=== PATIENT | male | born 1975 | race Caucasian/White ===

== ENCOUNTER 2018-02-24 08:07 | Inpatient (IN) | payer BC, OTHER ==
[~2018-02-24] VITALS: Ht 167.6 cm; Wt 90.8 kg
[~2018-02-24 08:07] MED LIST: VICODIN 5-5001 EACH
[2018-02-24] MEDS ORDERED: ONDANSETRON HCL 4 MG ORAL DISINTEGRATING TAB PO PRN (10:15)
[2018-02-24] MEDS ORDERED: HYDROMORPHONE 1MG/1ML INJ IV PRN (10:15)
[2018-02-24] MEDS: HYDROMORPHONE 2MG/ML 2 MG/ML ML IV PRN ×3 (11:03→21:45)
[2018-02-24] MEDS: SODIUM CHLORIDE 0.9% 1000ML 1,000 ML IV SCH (11:03)
[2018-02-24] MEDS: PIPER-TAZ 3.375 GM 50 ML IV SCH ×2 (11:03→19:00)
[2018-02-24 11:25] LABS: BASOPHILS # (AUTO) 0.1 (0.0-0.1); BASOPHILS % 0.5 % (0.0-1.0); EOSINOPHILS # (AUTO) 0.1 (0.0-0.4); EOSINOPHILS % 0.8 % (0.0-6.0); HEMATOCRIT 51.1 % (38.2-49.6); HEMOGLOBIN 17.2 g/dL (14.0-18.0); LYMPHOCYTES # (AUTO) 1.4 (1.0-3.2); LYMPHOCYTES % 12.1 % (18.0-39.1); MEAN CORPUSCULAR HEMOGLOBIN 33.2 pg (28-32); MEAN CORPUSCULAR HGB CONC 33.7 g/dL (31-35); MEAN CORPUSCULAR VOLUME 98.6 fL (81-99); MONOCYTES % 8.8 % (4.4-11.3); NEUTROPHILS # (AUTO) 8.9 (2.1-6.9); NEUTROPHILS % 77.3 % (38.7-80.0); PLATELET COUNT 291 x10e3/uL (140-360); RED BLOOD COUNT 5.18 x10e6/uL (4.3-5.7); RED CELL DISTRIBUTION WIDTH 14.3 % (11.7-14.4)
[2018-02-24] MEDS: VANCOMYCIN 1GM/NS 250 ML 250 ML IV SCH ×2 (11:41→22:13)
[2018-02-24 11:45] LABS: ALANINE AMINOTRANSFERASE 22 IU/L (0-55); ALBUMIN/GLOBULIN RATIO 0.9 (0.8-2.0); ALKALINE PHOSPHATASE 42 IU/L (40-150); ANION GAP 12.4 mmol/L (8-16); BLOOD UREA NITROGEN 5 mg/dL (7-26); BUN/CREATININE RATIO 6 (6-25); CALCIUM 9.9 mg/dL (8.4-10.2); CARBON DIOXIDE 30 mmol/L (22-29); CHLORIDE 102 mmol/L (98-107); CREATININE, SERUM 0.85 mg/dL (0.72-1.25); EST GLOMERULAR FILTRATION RATE > 60 ML/MIN (60-); GLUCOSE 105 mg/dL (74-118); POTASSIUM 4.4 mmol/L (3.5-5.1); SODIUM 140 mmol/L (136-145)
[2018-02-24 12:20] VITALS: BP 131/89
[2018-02-24 13:38] VITALS: BP 131/89
[2018-02-24 13:54] VITALS: BP 131/89
[2018-02-24] MEDS: NICOTINE 21 MG/EA PATCH TOP SCH (15:30)
--- NOTE | 2018-02-24 18:28 | Consultation ---
DATE OF CONSULTATION: February 24, 2018 REFERRING PHYSICIAN: Dr. Chance Barreto HISTORY OF PRESENT ILLNESS: The patient is a 42-year-old male who presents with complaints of pain and some drainage from the perianal area. Pain and swelling for about a week. He has had not exactly similar symptoms in the past. He has had previous bilateral cyst removed. Previous Staphylococcus infection. Patient has not noticed any bleeding and not had any fever. PAST MEDICAL HISTORY: Otherwise unremarkable. He has had previous surgeries with excision of pilonidal cyst. Repair of ACL. Extraction of teeth. There were no current medications. ALLERGIES: ERYTHROMYCIN. FAMILY HISTORY: Noncontributory. SOCIAL HISTORY: Patient does not smoke cigarettes or drink alcohol. REVIEW OF SYSTEMS: Is as stated above. He has had back pain and also migraines for which he takes Excedrin. PHYSICAL EXAMINATION: VITALS: Normal. He is afebrile. GENERAL: The patient is awake and alert and in no distress. HEENT: Reveals no scleral icterus. NECK: Has no masses. LUNGS: Equal breath sounds, are clear bilaterally. CARDIAC: Regular rate and rhythm. ABDOMEN: Soft with no tenderness. RECTAL EXAM: In the left anterior position there is induration and erythema with small amount of purulent drainage. EXTREMITIES: No edema. NEUROLOGIC: Grossly intact. LABORATORY DATA: White blood cell count 11.5, hemoglobin 17, hematocrit 51. Chemistries are essentially normal. ASSESSMENT: A 42-year-old male with a perirectal abscess. He is on IV antibiotics. PLAN: Incision and drainage to be done tomorrow. Procedure was explained to the patient including risks, benefits and alternatives. He understands the procedure. He has had the opportunity to ask questions. He is aware of the fistula and fistulotomy may be necessary. Thank you for asking me to see Mr. Jarvis. Job#: [id number]
[2018-02-24] MEDS ORDERED: TEMAZEPAM 15 MG CAP PO PRN (19:45)
[2018-02-24 20:00] VITALS: BP 142/78
--- NOTE | 2018-02-24 20:31 | History and Physical ---
This patient came in to the clinic for painful perirectal abscess, was seen in the morning. HISTORY OF PRESENT ILLNESS: Mr. Cisneros, who is a 42-year-old gentleman with the history of hypertension, was in usual state of health until the patient started to have rectal pain, started about 2 days ago, and 10/10 in severity, when he came and saw me. Patient was examined and was found to have a perirectal abscess, very tender and indurated, and patient was sent to the ER and admitted for perirectal abscess, possible for I and D. PAST MEDICAL HISTORY: Hypertension, hyperlipidemia. SURGICAL HISTORY: Appendectomy, tonsillectomy, history of tooth surgeries, history of surgeries also. MEDICATIONS: See medical reconciliation sheet. ALLERGIES: NO KNOWN DRUG ALLERGIES. REVIEW OF SYSTEMS: Negative for chest pain. No shortness of breath. No nausea, vomiting, diarrhea. No constipation. Possible rectal bleeding. Possible rectal pain. No diplopia. No blurry vision. EXAMINATION GENERAL: Patient is alert and oriented times 3. HEENT: Normocephalic, atraumatic. VITALS: Stable. CVS: S1, S2 normal. ABDOMEN: Nontender, nondistended. EXTREMITIES: No clubbing. No cyanosis. No edema. Right-sided rectal abscess, perirectal abscess tender, indurated, and some amount of bleeding present right now. Plan is to take him to surgery tomorrow. Also, patient has perirectal cellulitis too. Patient is on Zosyn and vancomycin. Will continue with that. Plans to take him to surgery tomorrow and do I and D of the abscess. Will continue monitoring the patient. Further recommendations per clinical course. Will follow the vancomycin trough and also, pain medication for perirectal abscess has been given. Job#: [id number] CQ
[2018-02-25] VITALS (8 sets, daily range): BP systolic 109–149; BP diastolic 69–96
[2018-02-25] MEDS: PIPER-TAZ 3.375 GM 50 ML IV SCH ×5 (00:11→23:31)
[2018-02-25] MEDS: SODIUM CHLORIDE 0.9% 1000ML 1,000 ML IV SCH ×3 (02:25→20:28)
[2018-02-25] MEDS: HYDROMORPHONE 2MG/ML 2 MG/ML ML IV PRN ×3 (02:35→09:44)
[2018-02-25 07:23] LABS: ALANINE AMINOTRANSFERASE 21 IU/L (0-55); ALBUMIN 3.2 g/dL (3.5-5.0); ALKALINE PHOSPHATASE 35 IU/L (40-150); ANION GAP 11.4 mmol/L (8-16); BLOOD UREA NITROGEN 9 mg/dL (7-26); BUN/CREATININE RATIO 11 (6-25); CALCIUM 8.9 mg/dL (8.4-10.2); CARBON DIOXIDE 29 mmol/L (22-29); CHLORIDE 106 mmol/L (98-107); CREATININE, SERUM 0.83 mg/dL (0.72-1.25); EST GLOMERULAR FILTRATION RATE > 60 ML/MIN (60-); GLUCOSE 93 mg/dL (74-118); POTASSIUM 4.4 mmol/L (3.5-5.1); SODIUM 142 mmol/L (136-145)
[2018-02-25 08:25] LABS: BASOPHILS % 0.8 % (0.0-1.0); EOSINOPHILS % 4.5 % (0.0-6.0); HEMATOCRIT 44.6 % (38.2-49.6); HEMOGLOBIN 14.9 g/dL (14.0-18.0); LYMPHOCYTES % 22.3 % (18.0-39.1); MEAN CORPUSCULAR HEMOGLOBIN 33.2 pg (28-32); MEAN CORPUSCULAR HGB CONC 33.4 g/dL (31-35); MEAN CORPUSCULAR VOLUME 99.3 fL (81-99); MONOCYTES % 12.6 % (4.4-11.3); NEUTROPHILS % 59.4 % (38.7-80.0); PLATELET COUNT 267 x10e3/uL (140-360); RED BLOOD COUNT 4.49 x10e6/uL (4.3-5.7); RED CELL DISTRIBUTION WIDTH 14.3 % (11.7-14.4)
[2018-02-25 08:26] LABS: BASOPHILS # (AUTO) 0.1 (0.0-0.1); EOSINOPHILS # (AUTO) 0.4 (0.0-0.4); LYMPHOCYTES # (AUTO) 1.8 (1.0-3.2); NEUTROPHILS # (AUTO) 4.7 (2.1-6.9)
[2018-02-25] MEDS: NICOTINE 21 MG/EA PATCH TOP SCH (09:02)
[2018-02-25] MEDS: VANCOMYCIN 1GM/NS 250 ML 250 ML IV SCH ×2 (09:44→19:32)
[2018-02-25] MEDS ORDERED: PIPER-TAZ 3.375 GM 50 ML ONE (11:16)
[2018-02-25] MEDS ORDERED: MORPHINE SULFATE 5 MG/ML VIAL IV PRN (11:45)
[2018-02-25] MEDS ORDERED: ONDANSETRON HCL INJ 2 MG/ML VIAL IV PRN (11:45)
[2018-02-25] MEDS ORDERED: HYDROCODONE/APAP 5MG-325MG TAB PO PRN (11:45)
[2018-02-25] MEDS ORDERED: MORPHINE SULFATE 2 MG/ML SYR IV PRN (12:00)
[2018-02-25] MEDS ORDERED: HYDROMORPHONE 1MG/1ML INJ IV PRN (12:00)
--- NOTE | 2018-02-25 13:11 | Operative Report ---
DATE OF PROCEDURE: February 25, 2018 PREOPERATIVE DIAGNOSIS: Perirectal abscess, anal fistula. POSTOPERATIVE DIAGNOSIS: Perirectal abscess, anal fistula. PROCEDURE PERFORMED: Incision and drainage of perirectal abscess with anal fistulotomy. APPLICATIONS CONSULTANT: None. ANESTHESIA: General. INDICATIONS AND FINDINGS: Patient is a 42-year-old male presents with complaints of pain in the perianal area with some drainage. At surgery there was an abscess in the left anterior perianal area with a submucosal fistula demonstrated with fistulotomy done distance of approximately 1.5 cm. TECHNIQUE: After adequate general anesthesia, with patient in lithotomy position, the perianal area was prepped and draped in sterile fashion with Betadine solution. There was an area of swelling and erythema in the left anterior position. Incision made in this area and purulent fluid drained. A sample taken for culture and sensitivity. Abscess cavity was probed and was found to be fistulous tract that tracked submucosally to the anterior anal area and a fistula is opened up using electrocautery. Hemostasis achieved with electrocautery. The wound was irrigated with saline. The abscess cavity was then packed open with 1/2 inch iodoform gauze and sterile dressing applied. Patient tolerated procedure well. Estimated blood loss was 10 mL. There were no complications. All counts were correct. Patient was taken to the recovery room in satisfactory condition. Job#: [id number] DG cc:SARAH MILLAN MD
[2018-02-25] MEDS ORDERED: MIDAZOLAM HCL 2 MG/2 ML VIAL ONE (14:02)
[2018-02-25] MEDS ORDERED: FENTANYL CITRATE/PF 100MCG/2 ML INJ ONE (14:02)
[2018-02-25] MEDS ORDERED: ONDANSETRON HCL INJ 2 MG/ML VIAL ONE (18:43)
[2018-02-25] MEDS ORDERED: LIDOCAINE HCL 2% LOCAL INJ 5 ML SDV VIAL INJ ONE (18:43)
[2018-02-25] MEDS ORDERED: DEXAMETHASONE SOD PHOS INJ 4 MG/ML VIAL ONE (18:43)
[2018-02-25] MEDS ORDERED: SEVOFLURANE INHAL SOLN 250 ML PEN BTL ONE (18:43)
[2018-02-25] MEDS ORDERED: PROPOFOL IV EMULSION 10 MG/ML 20 ML VIAL ONE (18:43)
[2018-02-26 01:10] VITALS: BP 124/62
[2018-02-26] MEDS: PIPER-TAZ 3.375 GM 50 ML IV SCH ×2 (05:40→12:00)
[2018-02-26 06:01] VITALS: BP 148/88
[2018-02-26 06:38] LABS: BASOPHILS # (AUTO) 0.1 (0.0-0.1); BASOPHILS % 0.4 % (0.0-1.0); EOSINOPHILS % 0.3 % (0.0-6.0); HEMATOCRIT 46.8 % (38.2-49.6); HEMOGLOBIN 15.1 g/dL (14.0-18.0); LYMPHOCYTES # (AUTO) 1.5 (1.0-3.2); LYMPHOCYTES % 12.6 % (18.0-39.1); MEAN CORPUSCULAR HEMOGLOBIN 32.8 pg (28-32); MEAN CORPUSCULAR HGB CONC 32.3 g/dL (31-35); MEAN CORPUSCULAR VOLUME 101.7 fL (81-99); MONOCYTES # (AUTO) 0.8 (0.2-0.8); MONOCYTES % 6.8 % (4.4-11.3); NEUTROPHILS # (AUTO) 9.3 (2.1-6.9); NEUTROPHILS % 79.4 % (38.7-80.0); PLATELET COUNT 317 x10e3/uL (140-360)
[2018-02-26 07:07] LABS: ALANINE AMINOTRANSFERASE 21 IU/L (0-55); ALBUMIN 3.3 g/dL (3.5-5.0); ALBUMIN/GLOBULIN RATIO 0.9 (0.8-2.0); ALKALINE PHOSPHATASE 38 IU/L (40-150); ANION GAP 12.4 mmol/L (8-16); BLOOD UREA NITROGEN 9 mg/dL (7-26); BUN/CREATININE RATIO 10 (6-25); CALCIUM 9.5 mg/dL (8.4-10.2); CARBON DIOXIDE 27 mmol/L (22-29); CHLORIDE 100 mmol/L (98-107); CREATININE, SERUM 0.92 mg/dL (0.72-1.25); EST GLOMERULAR FILTRATION RATE > 60 ML/MIN (60-); GLUCOSE 127 mg/dL (74-118); POTASSIUM 4.4 mmol/L (3.5-5.1); SODIUM 135 mmol/L (136-145)
[2018-02-26 07:38] VITALS: BP 157/87
[2018-02-26 08:50] VITALS: BP 157/87
[2018-02-26] MEDS: NICOTINE 21 MG/EA PATCH TOP SCH (09:00)
[2018-02-26] MEDS: VANCOMYCIN 1GM/NS 250 ML 250 ML IV SCH (09:15)
[2018-02-26 11:37] VITALS: BP 139/76
[2018-02-26] MEDS ORDERED: AUGMENTIN 875-1 EACH PO (13:32)
--- NOTE | 2018-03-31 01:15 | Discharge Summary ---
Patient came in with perirectal abscess. The patient also had anal fistula. I and D of the perirectal abscess and anal fistulotomy was done by Dr. Shea. The patient status post surgery was given pain medication and continued on IV Zosyn and vancomycin. Patient felt better. Packing was taught to the and patient was discharged home. DIAGNOSIS: Perirectal abscess, status post incision and drainage. Augmentin was prescribed on discharge, and patient also has history of nicotine dependence. Smoking cessation was advised and also patient was put on nicotine patch on discharge. For further information, look in the chart. For medicines on discharge, look in the medical reconciliation sheet. SARAH MILLAN MD Job#: [id number]
== END 2018-02-26 02:15 | disposition home or self-care (01) | DRG 346 ==
LOC: ER 08:07 → ERHOLD 11:07 → IMCU 11:36 → MED/SURG2 13:06 → OBSVTOIN 02-25 15:22 → MED/SURG2 02-25 15:59
PROVIDERS: ADMIT Family Medicine; ATTEND Family Medicine
PROC: 0D9P0ZZ Drainage of Rectum, Open Approach (ICD-10-PCS; 2018-02-25)
PROC: 0D9Q0ZX Drainage of Anus, Open Approach, Diagnostic (ICD-10-PCS; principal; 2018-02-25 11:21)
DX: K61.2 Anorectal abscess (principal); I10 Essential (primary) hypertension; E78.5 Hyperlipidemia, unspecified; F17.210 Nicotine dependence, cigarettes, uncomplicated
CPT/HCPCS: 36415; 80053; 80202; 85025; 87071; 87075; 87205; 96361; 99284; G0378; J1100; J2001; J2250; J2270; J2405; J2543; J3370; J7030

== ENCOUNTER 2022-11-26 23:44 | Emergency (ER) | payer SELFPAY ==
[~2022-11-26] VITALS: Ht 167.6 cm; Wt 90.7 kg
[~2022-11-26 23:44] MED LIST changes: +AUGMENTIN 875-1 EACH PO
[2022-11-27] MEDS ORDERED: METHYLPREDNISOLONE SOD SUCC 125 MG/2ML VIAL IM ONE (01:00)
[2022-11-27] MEDS ORDERED: METHYLPREDNISOLONE SOD SUCC 125 MG/2ML VIAL ONE (01:09)
[2022-11-27] MEDS ORDERED: BENZONATATE100 MG PO (02:15)
[2022-11-27] MEDS ORDERED: PREDNISONE50 MG PO (02:15)
[2022-11-27 02:17] VITALS: BP 157/100
== END 2022-11-27 02:24 | disposition home or self-care (01) ==
LOC: ER 23:52
DX: R06.02 Shortness of breath (principal); J44.1 Chronic obstructive pulmonary disease with (acute) exacerbation; R05.9 Cough, unspecified; I10 Essential (primary) hypertension; E78.5 Hyperlipidemia, unspecified; E78.00 Pure hypercholesterolemia, unspecified; F41.9 Anxiety disorder, unspecified; Z20.822 Contact with and (suspected) exposure to COVID-19
CPT/HCPCS: 71046; 99283; J2930; U0002

== ENCOUNTER 2024-07-22 18:21 | Emergency (ER) | payer SELFPAY ==
[~2024-07-22] VITALS: Ht 167.6 cm; Wt 122.5 kg
[~2024-07-22 18:21] MED LIST changes: +BENZONATATE100 MG PO; +DEXAMETHASONE6 MG PO; +NAPROXEN250 MG PO; +PREDNISONE50 MG PO; +ULTRAM 50MG50 MG PO
[2024-07-22 19:03] VITALS: PULSE 110; RESP 20; TEMP 98.5
[2024-07-22] MEDS ORDERED: DOXYCYCLINE HY100 MG PO (21:30)
[2024-07-22] MEDS ORDERED: VENTOLIN HFA18 GM INH (21:30)
[2024-07-22 21:33] VITALS: BP 138/87; PULSE 87; RESP 18; TEMP 98; O2SAT 98
== END 2024-07-22 21:30 | disposition home or self-care (01) ==
LOC: ER 18:24
DX: R07.89 Other chest pain (principal); R05.3 Chronic cough; K76.0 Fatty (change of) liver, not elsewhere classified; I10 Essential (primary) hypertension; J44.9 Chronic obstructive pulmonary disease, unspecified; E78.5 Hyperlipidemia, unspecified; E78.00 Pure hypercholesterolemia, unspecified; F41.9 Anxiety disorder, unspecified
CPT/HCPCS: 71250; 99283